=== PATIENT | male | born 1970 | race Two or more races ===

== ENCOUNTER → 2020-05-06 | Outpatient (CLI) | payer OTHER ==
--- NOTE | 2020-05-06 12:43 | CONS ---
CONSULTATION DATE OF SERVICE: 05/06/2020 This 49-year-old gentleman who has [facility] for possible obstructive sleep apnea-hypopnea syndrome. HISTORY OF PRESENT ILLNESS/SLEEP-WAKE EVALUATION: Patient sleep schedule from 10 to 11 p.m. to 7 a.m. basically 7 days a week. No problem with falling asleep. No TV in bedroom. Usually sleeps in the side position with loud snoring and witnessed episodes of stopped breathing during the sleep. Positive history of sleep talking. The patient wakes up to 3 times from sleep with one episode of nocturia. In the morning, he may wake up tired, has episodes of irritability. Jackson Sleepiness Scale is 4. Sometimes when he has taken naps, he may see vivid dreams. No history of hypnagogic hallucinations, sleep paralysis or cataplexy. PAST MEDICAL HISTORY: Positive for episodes of headaches, hyperlipidemia, acid reflux. PAST SURGICAL HISTORY: None. MEDICATIONS: Simvastatin 10 mg once a day. SOCIAL HISTORY: Positive for smoking for about 30 years, presently up to 2 cigarettes a day. Alcohol consumption none at the present time. FAMILY HISTORY: History of stroke, heart problems. REVIEW OF SYSTEMS: Loud snoring, awakenings from sleep. PHYSICAL EXAMINATION: GENERAL: A gentleman without distress. VITAL SIGNS: BP 107/71, HR 76, RR 15, height 6 feet 2 inches, weight 292.8 pounds, temperature 97.8, oxygen saturation at room air 96%. HEENT: PERRLA, EOMI. Oropharynx extremely low position of soft palate. Mallampati 4. NECK: Wide neck 18-1/4 inches in circumference. LUNGS: Clear to percussion and to auscultation. Good air exchange. No wheezing or rhonchi. HEART: S1, S2 regular. No murmurs, gallops, or rubs. ABDOMEN: Soft and nontender. Bowel sounds are present. No organomegaly appreciated. EXTREMITIES: No clubbing or cyanosis. FLAT BED OPERATOR: Awake, alert, and oriented X3. Cranial nerves 2 to 7 intact. There is no fasciculation or atrophy. noted. No focal deficits observed. IMPRESSION: 1. Loud snoring, witnessed episodes of stopped breathing during the sleep, extremely low position of soft palate, Mallampati 4, wide neck, obstructive sleep apnea- hypopnea syndrome. 2. Obesity, body mass index 37.6. 3. Hyperlipidemia. 4. Headaches. 5. History of acid reflux. PLAN: 1. Home sleep apnea test for evaluation of patient breathing during the sleep. 2. Following plan after reviewing results of sleep study. 3. CPAP/BiPAP titration if sleep study confirms obstructive sleep apnea-hypopnea syndrome. 4. Preferable position during sleep on the side. 5. No driving if feeling any sleepiness. 6. Losing weight program. 7. Sleep hygiene regular time in bed for 7-1/2 to 8 hours. 8. I will see patient for follow up visit to explain results of testing and following plan. Thank you very much for referring this patient for consultation. Sincerely, Zafar Mills MD, PhD, FAASM Diplomat of [employer] [employer] [employer] Staff Radiologist of [facility] [place] [email or web address] / ANDREW: [id number] /
== END | disposition home or self-care (01) ==
LOC: SLEEP 11:12
PROVIDERS: ATTEND Internal Medicine
DX: G47.33 Obstructive sleep apnea (adult) (pediatric) (principal); E66.9 Obesity, unspecified; Z68.37 Body mass index [BMI] 37.0-37.9, adult; E78.5 Hyperlipidemia, unspecified; R51.9 Headache, unspecified; Z87.19 Personal history of other diseases of the digestive system; Z79.899 Other long term (current) drug therapy
CPT/HCPCS: 99211